=== PATIENT | male | born 1965 | race Caucasian/White ===

== ENCOUNTER → 2021-01-25 | Outpatient (CLI) | payer OTHER ==
[2021-01-25 11:53] LABS: BASOPHILS % (AUTO) 1 % (0-1); EOSINOPHILS % (AUTO) 3 % (1-7); LYMPHOCYTES % (AUTO) 20 % (22-44); MEAN CORPUSCULAR HEMOGLOBIN 31.4 pg (27.5-34.5); MEAN CORPUSCULAR HGB CONC 33.8 g/dL (33.2-36.2); MEAN PLATELET VOLUME 8.5 fL (7.4-10.4); MICROSCOPIC NOT IND; MONOCYTES % (AUTO) 9 % (2-9); NEUTROPHILS % (AUTO) 67 % (42-75); PLATELET COUNT 201 x10^3/uL (130-400); RED BLOOD COUNT 5.13 x10^6/uL (4.38-5.82); RED CELL DISTRIBUTION WIDTH 12.9 % (9.4-14.8)
[2021-01-25 12:02] LABS: INTERNATIONAL NORMALIZED RATIO 1.03 (0.93-1.1)
[2021-01-25 12:04] LABS: CALCIUM 8.7 mg/dL (8.5-10.1); CREATININE 1.32 mg/dL (0.7-1.3)
[2021-01-25 12:10] LABS: ANION GAP 9 mmol/L (5-15); CHLORIDE 107 mmol/L (98-107)
== END | disposition home or self-care (01) ==
LOC: STAR 11:13
PROVIDERS: ATTEND Urology
DX: Z01.812 Encounter for preprocedural laboratory examination (principal); Z20.822 Contact with and (suspected) exposure to COVID-19
CPT/HCPCS: 36415; 80048; 81003; 84403; 85025; 85610; 87086; U0003; U0005

== ENCOUNTER 2021-01-30 10:29 | Day surgery (SDC) | payer OTHER ==
[~2021-01-30] VITALS: Ht 180.3 cm; Wt 87.5 kg
[2021-01-30 11:05] VITALS: BP 143/84
[2021-01-30] MEDS ORDERED: CHLORHEXIDINE 15 ML UDC PO ONE (11:30)
[2021-01-30] MEDS ORDERED: PLEASE ENTER ALLERGIES MC SCH (11:30)
[2021-01-30] MEDS ORDERED: LACTATED RINGERS 1,000 ML IV SCH (11:30)
[2021-01-30] MEDS ORDERED: CEFAZOLIN PMX 1GM/50ML 50 ML IV ONE (12:00)
[2021-01-30] MEDS ORDERED: BUPIVACAINE/PF 0.5% ONE ×2 (13:22→13:54)
[2021-01-30] MEDS ORDERED: EPINEPHRINE 1 MG/ML, 1ML ONE (13:22)
[2021-01-30] MEDS ORDERED: MIDAZOLAM 1 MG/ML, 2ML ONE (13:30)
[2021-01-30] MEDS ORDERED: FENTANYL PF 100 MCG/2ML ONE (13:30)
[2021-01-30] MEDS ORDERED: PROPOFOL 10 MG/ML, 20ML ONE ×2 (13:54)
[2021-01-30] MEDS ORDERED: CEFAZOLIN 1,000 MG ONE ×2 (13:54)
[2021-01-30] MEDS ORDERED: ONDANSETRON 2MG/ML, 2ML ONE ×2 (13:54)
[2021-01-30] MEDS ORDERED: DEXAMETHASONE 4 MG/ML, 1ML ONE ×2 (13:54)
[2021-01-30] MEDS ORDERED: ACETAMINOPHEN 325 MG TABLET PO PRN (14:00)
[2021-01-30] MEDS ORDERED: ONDANSETRON 2MG/ML, 2ML IVPush PRN (14:00)
[2021-01-30] MEDS ORDERED: HYDROmorphone 1 MG/ML, 1ML INJ IVPush PRN (14:00)
[2021-01-30] MEDS ORDERED: METHOCARBAMOL 1,000 MG in DEXTROSE 5% 100 ML IV PRN (14:00)
[2021-01-30] MEDS ORDERED: PROMETHAZINE 25 MG SUPP PR PRN (14:00)
[2021-01-30] MEDS ORDERED: OXYcodone 5 MG/5 ML ORAL.SOL UDC PO PRN (14:00)
[2021-01-30] MEDS ORDERED: MEPERIDINE/PF 25MG/0.5ML IVPush PRN (14:00)
[2021-01-30] MEDS ORDERED: LORazepam 2 MG/ML, 1ML IVPush PRN (14:00)
[2021-01-30] MEDS ORDERED: FENTANYL PF 100 MCG/2ML IV PRN (14:00)
[2021-01-30] MEDS ORDERED: PROMETHAZINE 25 MG/ML, 1ML IVPush PRN (14:00)
== END 2021-01-30 16:05 | disposition home or self-care (01) ==
LOC: OUT 10:29
PROVIDERS: ATTEND Urology
DX: N43.40 Spermatocele of epididymis, unspecified (principal)
CPT/HCPCS: 54840; 88304; J0171; J0690; J1100; J2250; J2405; J2704; J3010; J7120